=== PATIENT | male | born 1960 | race Caucasian/White ===

== ENCOUNTER → 2016-11-12 | Outpatient (CLI) | payer BC ==
--- NOTE | 2016-11-12 11:39 | ECHOF ---
Referral Reason:R07.9 chest pain MEASUREMENTS -------- HEIGHT: 177.8 cm WEIGHT: 102.1 kg BP: 152/66 WallScoring: string WallScoring: string WallScoring: string FINDINGS -------- Sinus rhythm. Utilizing the standard Alessandro protocol the patient was exercised for 9 minutes, 0 seconds, achieving a maximum heart rate of 151 , which is 92% of predicted maximal heart rate. There was physiologic heart rate and blood pressure response to exercise. Max Heart Rate: 157 % of Max Predicted Heart Rate: 92% Rest Heart Rate: 70 Rest BP: 152/66 Max BP: 215/79 Mets Achieved: 10.3 The test was stopped because of fatigue. The test was stopped because the target heart rate was achieved. This level of exercise represents an average exercise tolerance for age. Sinus rhythm. In response to stress, the ECG showed no ST-T wave changes (see exercise report for details). In response to stress, the ECG showed no ST-T wave changes (see exercise report for details). There were normal blood pressure and heart rate responses to stress. LV size, wall thickness and systolic function are normal, with an EF of 60%. Echo images were acquired at peak stress which demonstrated appropriate augmentation of all left ventricular segments with slight decrease in cavity size. CONCLUSIONS -------- 1. Utilizing the standard Alessandro protocol the patient was exercised for 9 minutes, 0 seconds, achieving a maximum heart rate of 151 , which is 92% of predicted maximal heart rate. There was physiologic heart rate and blood pressure response to exercise. 2. The test was stopped because of fatigue. 3. XXX functional exercise capacity. No ECG or 2D echocardiographic evidence of inducible ischemia to achieved workload. ORTHODONTIC TECHNICIAN ASSISTANT: Jorge Aleman RDCS
--- NOTE | 2016-11-12 14:50 | EST ---
Referral Reason:R07.9 chest pain MEASUREMENTS -------- HEIGHT: 177.8 cm WEIGHT: 102.1 kg BP: 152/66 FINDINGS -------- Sinus rhythm. Utilizing the standard Alessandro protocol the patient was exercised for 9 minutes, 0 seconds, achieving a maximum heart rate of 151 , which is 92% of predicted maximal heart rate. There was physiologic heart rate and blood pressure response to exercise. Max Heart Rate: 157 % of Max Predicted Heart Rate: 92% Rest Heart Rate: 70 Rest BP: 152/66 Max BP: 215/79 Mets Achieved: 10.3 The test was stopped because of fatigue. The test was stopped because the target heart rate was achieved. This level of exercise represents an average exercise tolerance for age. Sinus rhythm. In response to stress, the ECG showed no ST-T wave changes (see exercise report for details). In response to stress, the ECG showed no ST-T wave changes (see exercise report for details). There were normal blood pressure and heart rate responses to stress. LV size, wall thickness and systolic function are normal, with an EF of 60%. Echo images were acquired at peak stress which demonstrated appropriate augmentation of all left ventricular segments with slight decrease in cavity size. CONCLUSIONS -------- 1. Utilizing the standard Alessandro protocol the patient was exercised for 9 minutes, 0 seconds, achieving a maximum heart rate of 151 , which is 92% of predicted maximal heart rate. There was physiologic heart rate and blood pressure response to exercise. 2. The test was stopped because of fatigue. 3. XXX functional exercise capacity. No ECG or 2D echocardiographic evidence of inducible ischemia to achieved workload. NUTRITION TECHNICIAN: LEENA Montesinos Exam Start:944 Exam Stop:1009 MTDD
== END | disposition home or self-care (01) ==
LOC: RADNMMAIN 09:32
PROVIDERS: ATTEND Internal Medicine
DX: R00.0 Tachycardia, unspecified (principal); R53.83 Other fatigue; R07.9 Chest pain, unspecified
CPT/HCPCS: 93017; 93350

== ENCOUNTER → 2021-03-04 | Outpatient (CLI) | payer OTHER ==
--- NOTE | 2021-03-04 22:00 | CT ---
EXAMINATION TYPE: CT abdomen w con DATE OF EXAM: 03/04/2021 COMPARISON: None. HISTORY: Abnormal findings liver test CT DLP: 1398 mGycm, Automated Exposure Control for Dose Reduction was Utilized. CONTRAST: CT scan of the abdomen is performed with oral and with IV Contrast, patient injected with 100 mL of I sovue 300. FINDINGS: LUNG BASES: Mild bibasilar linear scarring and/or atelectasis. Mild cardiomegaly. LIVER/GB: Multiple round calcified gallstones with contracted gallbladder. No surrounding inflammator y change liver is diffusely low dense relative to spleen suggesting possible mild diffuse fatty infil tration. Correlation with noncontrast study or ultrasound advised. No concerning solid or cystic intr ahepatic mass. No biliary dilatation. PANCREAS: No significant abnormality is seen. SPLEEN: No significant abnormality is seen. ADRENALS: No significant abnormality is seen. KIDNEYS: Symmetric cortical medullary uptake and excretion without hydronephrosis. Occasional subcent imeter low dense lesion bilaterally in both kidneys too small to further characterize but presumed be nign. BOWEL: Oral contrast does not reach level of terminal ileum. No suspicious small or large bowel dilat ation. Mild wall thickening left colon present product of poor distention. LYMPH NODES: No greater than 1cm abdominal lymph nodes are appreciated. OSSEOUS STRUCTURES: Mild multilevel spurring in the thoracolumbar spine. Left-sided pars defect L5 le ernesto. OTHER: [id number]-[id number] calcified plaque of the aorta extends into branch vessels. IMPRESSION: Multiple gallstones without CT evidence for acute cholecystitis. No concerning intrahepat ic mass or intrahepatic ductal dilatation.
== END | disposition home or self-care (01) ==
LOC: RADCTMAIN 17:08
PROVIDERS: ATTEND Internal Medicine
DX: K80.20 Calculus of gallbladder without cholecystitis without obstruction (principal); K76.89 Other specified diseases of liver
CPT/HCPCS: 74160; Q9967

== ENCOUNTER → 2022-02-10 | Outpatient (CLI) | payer BC ==
--- NOTE | 2022-02-11 08:32 | NM ---
EXAMINATION TYPE: NM stress cardiolite complete DATE OF EXAM: 02/10/2022 COMPARISON: NONE HISTORY: 61-year-old male Z1 3.6, screening heart disease. TECHNIQUE: After the intravenous administration of 9.96 mCi Tc 99m Sestamibi - Rest images obtained 45 minutes post injection. The patient exercised using a AMEE protocol and 1 minute prior to peak exercise was injected with 25.7 mCi Tc 99m Sestamibi - Stress images obtained 55 minutes post injecti on. FINDINGS: Targeted heart rate (135 bpm) was achieved during performance of the study (154 BPM achieved). Total exercise time 9 minutes 15 seconds. Review of stress and rest SPECT images demonstrates decreased perfusion along the inferior wall which accentuates to involve the inferoseptal and more of the inferior wall on stress. Gated analysis show s normal wall motion with an estimated left ventricular ejection fraction of 62 %. TID calculated at 0.75, within normal limits. IMPRESSION: Extensive inferior wall perfusion abnormality is equivocal between prominent diaphragmatic attenuatio n artifact versus an area of prior infarct with associated inducible juhi-infarct ischemia. As polar maps show no corresponding reversibility, the former is slightly favored. Further evaluation as clini mike indicated.
== END | disposition home or self-care (01) ==
LOC: RADNMMAIN 08:28
PROVIDERS: ATTEND Internal Medicine
DX: Z13.6 Encounter for screening for cardiovascular disorders (principal)
CPT/HCPCS: 93017; 78452; A9500

== ENCOUNTER → 2022-05-08 | Outpatient (CLI) | payer BC ==
[2022-05-08 23:53] LABS: African American GFR (CKD) 102.9 (60.0-200.0); Anion Gap 10.3 mmol/L (10.00-18.00); Blood Urea Nitrogen 13.8 mg/dL (9.0-27.0); Carbon Dioxide 29.1 mmol/L (20.0-27.5); Non-African American GFR(CKD) 88.8 (60.0-200.0); Potassium 4.2 mmol/L (3.5-5.5)
[2022-05-09 00:44] LABS: HCT 44.5 % (39.6-50.0); HGB 14.7 g/dL (13.0-17.0); MCH 29.8 pg (27.0-32.0); MCV 90.1 fL (80.0-97.0); Mean Platelet Volume 10.4 fL (9.5-12.2); NRBC Per 100 WBC 0 /100 WBCS (0.0-0.0); Platelet Count 208 X 10*3/uL (140-440); RBC 4.94 X 10*6/uL (4.40-5.60); RDW 12.5 % (11.5-14.5); WBC 8.43 X 10*3/uL (4.50-10.00)
== END | disposition home or self-care (01) ==
LOC: LABPAT 16:02
PROVIDERS: ATTEND Internal Medicine Interventional Cardiology
DX: Z01.812 Encounter for preprocedural laboratory examination (principal); E78.1 Pure hyperglyceridemia; R07.9 Chest pain, unspecified
CPT/HCPCS: 80051; 82565; 84520; 85027

== ENCOUNTER → 2022-05-12 | Day surgery (SDC) | payer BC ==
[2022-05-08 12:30] VITALS: BMI 33.0
[~2022-05-12] MED LIST: ALPRAZolam 0.25 MG TAB PO PRN; ALPRAZolam 0.5 MG TAB PO PRN; ASPIRIN 325 MG TAB PO ONE; HEPARIN SODIUM 1,000 UN/ML (10ML VL) IV ONE; HEPARIN SODIUM 1,000 UN/ML (10ML VL) ONE; IOPAMIDOL-370 125ML BTL INJ ONE; LIDOCAINE 1% INJ 10MG/ML (5 ML VIAL-PF) SQ ONE; MIDAZOLAM 2 MG/2 ML VIAL IV ONE; NITROGLYCERIN SL TABS 0.4 MG TAB SUBLINGUAL PRN; RX INFO: IV CONTRAST WAS GIVEN 1 EACH MISC MISCELLANE PRN; SODIUM CHLORIDE 0.9% 1,000 ML IV SCH; SODIUM CHLORIDE 0.9% 1,000 ML in EMPTY BAG 1 BAG IV SCH; VERAPAMIL 2.5 MG/ML 2 ML AMP ONE; VERAPAMIL SYRINGE (5 MG/10 ML) INTRAARTER ONE
[2022-05-12 07:16] VITALS: TEMP 97.9
--- NOTE | 2022-05-12 07:59 | P.PCN ---
Date of Procedure: 05/12/22 Operative Findings: CARDIAC CATHETERIZATION PERFORMING PHYSICIAN: Rigo Brock MD, RPVI PROCEDURE PERFORMED: 1. Selective right and left coronary angiogram 2. Left heart catheterization INDICATION: Abnormal myocardial perfusion imaging stress test COMPLICATION: None APPROACH: Right radial artery LEVEL OF SEDATION: Moderate with a sedation length of 10 minutes PROCEDURE DESCRIPTION: After obtaining an informed consent, the patient was brought to cardiac electronic lab technician. Local anesthesia was performed using lidocaine subcutaneously. The right radial artery was cannulated using Seldinger technique, the guidewire passed easily, following that we advanced a 5-Lithuanian sheath dilator assembly, the wire and dilator were removed and sheath was flushed. Following that, 2 mg of verapamil along with 5000 unit heparin were given. Selective right and left coronary angiogram using a 6-Lithuanian JR4 and JL 3.5 catheters. Following that we did left heart catheterization using 6-Lithuanian pigtail catheter. The procedure was completed there was no complication. SELECTIVE CORONARY ANGIOGRAM: The right coronary artery: Large caliber vessel and a dominant vessel. Its angiographically normal. Left main: Is angiographically normal but short left main. Bifurcates into LCx and LAD The left circumflex: Large caliber vessel nondominant vessel. Its angiographically normal. It gives rises into the first and second and third obtuse marginal branches appeared to be angiographically normal The left anterior descending artery: Large caliber vessel. It appears to be angiographically normal. Gives rises into a diagonal branches appeared to be small caliber and angiographically normal HEMODYNAMICS: The LVEDP was 15 mmHg was no significant gradient across aortic valve CONCLUSION: 1. Normal coronary angiogram 2. Mildly elevated left-sided filling pressure POSTPROCEDURE MANAGEMENT: Medical treatment and follow-up with the patient
[2022-05-12 17:26] VITALS: BP 153/80; PULSE 54; RESP 14
== END ==
LOC: CATHCVL 06:16
PROVIDERS: ATTEND Internal Medicine Interventional Cardiology
DX: R94.39 Abnormal result of other cardiovascular function study (principal); Z82.49 Family history of ischemic heart disease and other diseases of the circulatory system; E78.5 Hyperlipidemia, unspecified; F17.210 Nicotine dependence, cigarettes, uncomplicated; E66.3 Overweight; Z79.82 Long term (current) use of aspirin; Z79.02 Long term (current) use of antithrombotics/antiplatelets
CPT/HCPCS: 93458; C1769; C1894; J2250; J2001; J1644; Q9967

== ENCOUNTER → 2024-02-08 | Outpatient (CLI) | payer BC ==
--- NOTE | 2024-02-08 16:28 | US ---
EXAMINATION TYPE: US carotid duplex BILAT DATE OF EXAM: 02/08/2024 COMPARISON: NONE CLINICAL INDICATION: Male, 63 years old with history of [id number] CAROTID STENOSIS BILATERAL; rule out st enosis TECHNIQUE: Grayscale, color Doppler and spectral Doppler evaluation of the bilateral carotid systems and vertebral arteries.Indirect Doppler criteria was utilized. FINDINGS: EXAM MEASUREMENTS: RIGHT: Peak Systolic Velocity (PSV) cm/sec ----- Right CCA: 101.1 ----- Right ICA: 83.1 ----- Right ECA: 79.8 ICA/CCA ratio: 0.8 RIGHT: End Diastole cm/sec ----- Right CCA: 21.2 ----- Right ICA: 20.4 ----- Right ECA: 12.8 LEFT: Peak Systolic Velocity (PSV) cm/sec ----- Left CCA: 85.4 ----- Left ICA: 90.3 ----- Left ECA: 89.2 ICA/CCA ratio: 1.1 LEFT: End Diastole cm/sec ----- Left CCA: 19.2 ----- Left ICA: 24.1 ----- Left ECA: 12.8 VERTEBRALS (direction of flow): Right Vertebral: Antegrade Left Vertebral: Antegrade Rhythm: Normal DENITRATOR NOTES: no elevated velocities. Limited plaque seen. IMPRESSION: Right: Less than 50% stenosis of the carotid bifurcation. Normal (no stenosis)=ICA PSV < 125 cm/s: ra moon < 2.0: ICA EDV<40 cm/s. Left: Less than 50% stenosis of the carotid bifurcation. Normal (no stenosis)=ICA PSV < 125 cm/s: rat io < 2.0: ICA EDV<40 cm/s. Criteria for Assigning % of Stenosis / Diameter reduction (Estimation based on the indirect measurements of the internal carotid artery velocities (ICA PSV). 1. Normal (no stenosis)=ICA PSV < 125 cm/s: ratio < 2.0: ICA EDV<40 cm/s. 2. Less than 50% stenosis=ICA PSV < 125 cm/s: ratio < 2.0: ICA EDV<40 cm/s. 3. 50 to 69% stenosis=ICA PSV of 125 to 230 cm/s: ration 2.0 ? 4.0: ICA EDV 40-100 cm/s. 4. Greater than 70% stenosis to near occlusion= ICA PSV > 230 cm/s: ratio > 4.0: ICA EDV > 100 cm/s. 5. Near occlusion= ICA PSV velocities may be low or undetectable: variable ratio and ICA EDV. 6. Total occlusion=unable to detect flow. [facility], , 02/08/2024 4:25 PM
== END | disposition home or self-care (01) ==
LOC: RADUSWWP 15:53
PROVIDERS: ATTEND Internal Medicine
DX: I65.23 Occlusion and stenosis of bilateral carotid arteries (principal)
CPT/HCPCS: 93880